=== PATIENT | female | born 1990 | race Two or more races ===

== ENCOUNTER 2019-03-17 17:01 | Emergency (ER) | payer OTHER ==
[~2019-03-17] VITALS: Ht 152.4 cm; Wt 63.6 kg
[2019-03-17 17:11] VITALS: BP 107/70
--- NOTE | 2019-03-17 17:36 | NUR ---
Pt ambulatory to room. Pt alert and oriented. NAD. Pt with nasal congestion and dry cough. Lungs clear. Pt reports she is 6 weeks and is sore to her right lowback/side/hip.
[2019-03-17 18:16] LABS: RAPID INFLUENZA A Negative (Negative); RAPID INFLUENZA B POSITIVE (Negative)
--- NOTE | 2019-03-17 18:41 | NUR ---
Pt educated on flu, hydration medications and preventing the spread of flu. Pt VU. Pt remains alert and oriented and ambulated out of ER.
== END 2019-03-17 18:40 | disposition home or self-care (01) ==
LOC: ED 18:00
DX: J10.1 Influenza due to other identified influenza virus with other respiratory manifestations (principal); M79.10 Myalgia, unspecified site
CPT/HCPCS: 71045; 87400; 99284